=== PATIENT | female | born 1990 | race Caucasian/White ===

== ENCOUNTER → 2020-12-09 | Outpatient (CLI) | payer BC, OTHER ==
[2020-12-10 07:11] LABS: RHEUMATOID ARTHRITIS FACTOR 11.5 IU/mL (0.0-13.9)
[2020-12-11 00:07] LABS: CCP ANTIBODIES IGG/IGA <1 units (0-19)
== END ==
LOC: LAB 10:41
PROVIDERS: Nurse Practitioner Family
DX: M25.50 Pain in unspecified joint (principal); D89.9 Disorder involving the immune mechanism, unspecified; R76.8 Other specified abnormal immunological findings in serum; R53.83 Other fatigue; M79.10 Myalgia, unspecified site
CPT/HCPCS: 36415; 82550; 82728; 83520; 83540; 83550; 85652; 86140; 86200; 86431

== ENCOUNTER → 2022-04-19 | Outpatient (CLI) | payer OTHER | LOC: SLEEP 13:07 | DX: G47.33 Obstructive sleep apnea (adult) (pediatric) (principal) | CPT/HCPCS: 95810 ==